=== PATIENT | female | born 1985 | race Caucasian/White ===

== ENCOUNTER 2018-06-26 14:06 | Outpatient (CLI) | payer BC ==
[2018-06-26 15:25] LABS: #Eosinphils 0.1 thou/uL (0.0-0.7); #Lymphocytes 2.5 thou/uL (1.20-3.40); #Monocytes 0.4 thou/uL (0.11-0.59); %Basophils 0.5 % (0.0-1.0); %Eosinophils 0.9 % (0.0-10.0); %Lymphocytes 27.4 % (21.0-51.0); %Monocytes 4.7 % (0.0-10.0); %Neutrophils 66.5 % (42.0-75.0); Hemoglobin 12.9 g/dL (12.0-16.0); Mean Corpuscular Hemoglobin 32.2 pg (27.0-31.0); Mean Corpuscular Volume 94.8 fL (78.0-98.0); Mean Platelet Volume 7.5 fL (7.4-10.4); Platelet Count 301 thou/uL (130-400); RBC Distribution Width 11.6 % (11.5-14.5); Red Blood Cell (RBC) Count 3.99 mill/uL (4.20-5.40)
[2018-06-26 15:30] LABS: BHCG - Serum Negative (NEGATIVE); Pregs Control Background? CLEAR/WHITE (CLR/WHITE); Pregs Control Bar Appear? YES (CONTROL BAR)
[2018-06-26 15:44] LABS: Anion Gap 13 mmol/L (10-20); BUN (Urea Nitrogen) 11 mg/dL (7.0-18.7); Calc. Creatinine Clearance 0 mL/min (70-130); Calcium 9.3 mg/dL (7.8-10.44); Carbon Dioxide 24 mmol/L (22-29); Chloride 105 mmol/L (98-107); Estimated GFR-MDRD 73; Glucose 101 mg/dL (70-105); Potassium 3.9 mmol/L (3.5-5.1); Sodium 138 mmol/L (136-145)
== END 2018-06-26 14:07 | disposition home or self-care (01) ==
LOC: LABBT 14:06
PROVIDERS: ATTEND Surgery
DX: Z01.812 Encounter for preprocedural laboratory examination (principal); K42.9 Umbilical hernia without obstruction or gangrene
CPT/HCPCS: 80048; 84703; 85025

== ENCOUNTER 2018-06-27 09:21 | Day surgery (SDC) | payer BC ==
[2018-06-26 14:37] VITALS: BMI 26.6
[2018-06-27] MEDS ORDERED: Glycopyrrolate 0.2 MG/ML 5 ML SYRINGE ONE (10:02)
[2018-06-27] MEDS ORDERED: Lidocaine 1% PF 5 ML VIAL ONE (10:02)
[2018-06-27] MEDS ORDERED: Dexamethasone 20 MG/5 ML VIAL ONE (10:02)
[2018-06-27] MEDS ORDERED: PROPOFOL 200 MG/20 ML VIAL ONE (10:02)
[2018-06-27] MEDS ORDERED: Ketorolac Tromethamine 30 MG/ML VIAL ONE (10:02)
[2018-06-27] MEDS ORDERED: Ondansetron HCl/PF 4 MG/2 ML Vial ONE (10:02)
[2018-06-27] MEDS ORDERED: HYDROcodone/Acetaminophen 5/325 mg Tablet ONE (14:19)
--- NOTE | 2018-06-28 08:30 | OP ---
DATE OF PROCEDURE: 06/27/2018 PREOPERATIVE DIAGNOSIS: Umbilical hernia. POSTOPERATIVE DIAGNOSIS: Umbilical hernia. PROCEDURE: Umbilical hernia with mesh, Ventralex ST small. SURGEON: Dr. Wes Braga ANESTHESIA: General. ESTIMATED BLOOD LOSS: Minimal. COMPLICATIONS: None. SPECIMEN: None. FINDINGS: Umbilical hernia. TECHNIQUE: The patient was taken to the operating room and placed supine on the table. After genera l anesthetic was obtained, the abdomen was prepped and draped in a sterile fashion. Curved incision made below the umbilicus. Cautery was used to dissect down to and the umbilical stalk is amputated, exposing the umbilical defect. The edges of the defect are freshened. The [address] umbilic al hernia repair mesh was brought into the sterile field. The underlay was placed in the preperitone al space, its fibers laid out flat against the posterior abdominal wall. The tails were laid out lat erally and sewed to the edges of the fascia using permanent braided suture. The tails were then cut at the level of the fascia. The wound was irrigated. Local anesthetic was applied. The umbilical s kin is tacked back down using 3-0 Vicryl. Skin was closed with running 4-0 Monocryl and Dermabond. The patient went to recovery in stable condition. All instrument counts, needle counts, lap counts w ere correct.
== END 2018-06-27 14:40 | disposition home or self-care (01) ==
LOC: SDC 09:21 → EEVIPCON 06-28 14:00
PROVIDERS: ATTEND Surgery
PROC: 0WUF0JZ Supplement Abdominal Wall with Synthetic Substitute, Open Approach (ICD-10-PCS; principal; 2018-06-27)
DX: K42.9 Umbilical hernia without obstruction or gangrene (principal); J45.909 Unspecified asthma, uncomplicated; G43.909 Migraine, unspecified, not intractable, without status migrainosus; F32.9 Major depressive disorder, single episode, unspecified; F41.9 Anxiety disorder, unspecified; Z79.899 Other long term (current) drug therapy; Z88.1 Allergy status to other antibiotic agents
CPT/HCPCS: J1100; J1885; J2001; J2405; J2704